=== PATIENT | female | born 1985 | race Caucasian/White ===

== ENCOUNTER 2018-07-10 18:29 | Emergency (ER) | payer BC ==
[2018-07-10] MEDS: morphine 4 MG/ML VIAL IV ×2 (20:46→22:43)
[2018-07-10] MEDS: SOD CHLORIDE 0.9% 1,000 ML IV (20:46)
[2018-07-10] MEDS: ONDANSETRON 4 MG INJ IV (20:46)
[2018-07-10 20:54] LABS: ADD MAN DIFF? NO
[2018-07-10 20:57] LABS: BASOPHILS % 0.5 % (0.0-2.0); EOSINOPHILS # 0.3 10^3/ul (0.0-0.5); EOSINOPHILS % 3.1 % (0.0-7.0); HEMATOCRIT 38.6 % (37.0-47.0); HEMOGLOBIN 13.2 g/dl (12.0-16.0); LYMPHOCYTES # 2.4 10^3/ul (0.8-2.9); LYMPHOCYTES % 26.8 % (15.0-51.0); MEAN CORPUSCULAR HEMOGLOBIN 29.4 pg (29.0-33.0); MEAN CORPUSCULAR HGB CONC 34.2 g/dl (32.0-37.0); MEAN PLATELET VOLUME 9.4 fl (7.4-10.4); MONOCYTE # 0.5 10^3/ul (0.3-0.9); MONOCYTES % 6.1 % (0.0-11.0); NEUTROPHIL # 5.6 10^3/ul (1.6-7.5); NEUTROPHILS % 63.2 % (39.0-77.0); PLATELET COUNT 215 10^3/UL (140-415); RED BLOOD COUNT 4.49 10^6/ul (4.20-5.40); RED CELL DISTRIBUTION WIDTH 13.2 % (11.5-14.5)
[2018-07-10 20:57] LABS: WHITE BLOOD COUNT 8.8 10^3/ul (4.8-10.8)
[2018-07-10 21:02] LABS: ADD UMIC YES; UR ASCORBIC ACID NEGATIVE (NEGATIVE); UR BACTERIA FEW /HPF (NONE SEEN); UR BILIRUBIN (Dip) NEGATIVE (NEGATIVE); UR BLOOD (Dip) 1+ mg/dL (NEGATIVE); UR CLARITY SLIGHTLY CLOUDY (CLEAR); UR COLOR YELLOW (YELLOW); UR GLUCOSE (Dip) NEGATIVE (NEGATIVE); UR KETONES (Dip) NEGATIVE (NEGATIVE); UR LEUKOCYTE ESTERASE (Dip) 2+ Leu/ul (NEGATIVE); UR NITRITE (Dip) NEGATIVE (NEGATIVE); UR RBC 1 /HPF (0-5); UR SPECIFIC GRAVITY (Dip) 1.013 (1.003-1.030); UR SQUAMOUS EPITHELIAL CELL FEW /HPF (FEW); UR TOTAL PROTEIN (Dip) NEGATIVE (NEGATIVE); UR UROBILINOGEN (Dip) NEGATIVE (NEGATIVE); UR WBC 5 /HPF (0-5)
[2018-07-10 21:15] LABS: ALANINE AMINOTRANSFERASE 95 IU/L (13-69); ALBUMIN 4.6 g/dl (3.3-4.9); ALBUMIN/GLOBULIN RATIO 1.27; ALKALINE PHOSPHATASE 120 IU/L (42-121); ANION GAP 12 (5-13); ASPARTATE AMINO TRANSFERASE 60 IU/L (15-46); BILIRUBIN,INDIRECT 0.3 mg/dl (0-1.1); BILIRUBIN,TOTAL 0.3 mg/dl (0.2-1.3); BLOOD UREA NITROGEN 14 mg/dl (7-20); CALCIUM 9.5 mg/dl (8.4-10.2); CARBON DIOXIDE 25 mmol/L (21-31); CHLORIDE 104 mmol/L (97-110); CREATININE 1.01 mg/dl (0.44-1.00); Estimated GFR > 60 mL/min (>60); GLUCOSE 100 mg/dl (70-220); LIPASE 93 U/L (23-300); POTASSIUM 4.1 mmol/L (3.5-5.1); SODIUM 141 mmol/L (135-144); TOTAL PROTEIN 8.2 g/dl (6.1-8.1)
[2018-07-10] MEDS: IODIXANOL LOCM 100 ML BTL (21:44)
[2018-07-10] MEDS: SOD CHLORIDE 0.9% 100 ML (21:44)
[2018-07-10] MEDS: CEFTRIAXONE 1 GM/50 ML (PMX) 50 ML IVPB (22:43)
== END 2018-07-10 23:03 | disposition home or self-care (01) ==
LOC: FTE 18:29
DX: N83.202 Unspecified ovarian cyst, left side (principal); N30.00 Acute cystitis without hematuria
CPT/HCPCS: 36415; 74177; 80053; 81001; 81025; 83690; 85025; 96361; 96374; 96375; 96376; 99285-25

== ENCOUNTER 2019-02-06 21:38 | Emergency (ER) | payer BC ==
[2019-02-06] MEDS: ONDANSETRON 4 MG INJ IV ×2 (21:43→22:01)
[2019-02-06] MEDS: KETOROLAC 30 MG INJ IV (21:43)
[2019-02-06 21:57] LABS: ADD MAN DIFF? NO
[2019-02-06] MEDS ORDERED: DIPHENOXYLATE/ATROPINE TAB PO (22:00)
[2019-02-06] MEDS: DICYCLOMINE 10 MG CAP PO (22:00)
[2019-02-06] MEDS: SOD CHLORIDE 0.9% 1,000 ML IV (22:01)
[2019-02-06] MEDS: HYDROmorphONE 1 MG/ML SYG IV (22:01)
[2019-02-06 22:02] LABS: BASOPHILS % 0.5 % (0.0-2.0); EOSINOPHILS # 0.1 10^3/ul (0.0-0.5); EOSINOPHILS % 1.2 % (0.0-7.0); HEMATOCRIT 40.1 % (37.0-47.0); HEMOGLOBIN 13.4 g/dl (12.0-16.0); LYMPHOCYTES # 2.6 10^3/ul (0.8-2.9); LYMPHOCYTES % 31.1 % (15.0-51.0); MEAN CORPUSCULAR HEMOGLOBIN 29.6 pg (29.0-33.0); MEAN CORPUSCULAR HGB CONC 33.4 g/dl (32.0-37.0); MEAN CORPUSCULAR VOLUME 88.5 fl (82.0-101.0); MEAN PLATELET VOLUME 9.6 fl (7.4-10.4); MONOCYTE # 0.4 10^3/ul (0.3-0.9); MONOCYTES % 5.2 % (0.0-11.0); NEUTROPHIL # 5.2 10^3/ul (1.6-7.5); NEUTROPHILS % 61.6 % (39.0-77.0); PLATELET COUNT 244 10^3/UL (140-415); RED BLOOD COUNT 4.53 10^6/ul (4.20-5.40)
[2019-02-06 22:02] LABS: WHITE BLOOD COUNT 8.5 10^3/ul (4.8-10.8)
[2019-02-06 22:22] LABS: ALANINE AMINOTRANSFERASE 96 IU/L (13-69); ALBUMIN 4.5 g/dl (3.3-4.9); ALBUMIN/GLOBULIN RATIO 1.18; ALKALINE PHOSPHATASE 115 IU/L (42-121); AMYLASE 83 U/L (11-123); ANION GAP 10 (5-13); ASPARTATE AMINO TRANSFERASE 54 IU/L (15-46); BILIRUBIN,INDIRECT 0.4 mg/dl (0-1.1); BILIRUBIN,TOTAL 0.4 mg/dl (0.2-1.3); BLOOD UREA NITROGEN 14 mg/dl (7-20); CALCIUM 9.6 mg/dl (8.4-10.2); CARBON DIOXIDE 23 mmol/L (21-31); CHLORIDE 107 mmol/L (97-110); CREATININE 0.55 mg/dl (0.44-1.00); Estimated GFR > 60 mL/min (>60); GLUCOSE 131 mg/dl (70-220); LIPASE 66 U/L (23-300); POTASSIUM 3.9 mmol/L (3.5-5.1); SODIUM 140 mmol/L (135-144); TOTAL PROTEIN 8.3 g/dl (6.1-8.1)
[2019-02-06 22:33] LABS: TROPONIN-I < 0.012 ng/ml (0.000-0.120)
[2019-02-07] MEDS: HYDROmorphONE 1 MG/ML SYG IV (00:05)
[2019-02-07] MEDS: ONDANSETRON 4 MG INJ IV (00:06)
[2019-02-07] MEDS: KETOROLAC 30 MG INJ IV (00:06)
[2019-02-07] MEDS: SOD CHLORIDE 0.9% 1,000 ML IV (00:06)
[2019-02-07] MEDS: TAMSULOSIN (SR) 0.4 MG CAP PO (00:06)
== END 2019-02-07 01:16 | disposition home or self-care (01) ==
LOC: E/R 02-07 01:16
DX: N20.0 Calculus of kidney (principal)
CPT/HCPCS: 74176; 80053; 82150; 83690; 84484; 84703; 85025; 93005; 96374; 96375; 96376; 99285-25